=== PATIENT | female | born 1950 | race Hispanic/Latino ===

== ENCOUNTER 2017-06-17 08:11 | Outpatient (CLI) | payer MEDICARE ==
--- NOTE | 2017-06-17 10:27 | Fluoroscopy Report ---
BARIUM SWALLOW AND UGI INDICATION: Hiatal hernia with reflux. Ascending aortic surgical repair. Marfan syndrome. COMPARISON: 10/01/2010 upper GI. FINDINGS: Barium swallow and UGI performed. Patient swallowed thick and thin barium without any difficulty as also tolerated effervescent granules well. [employer] view demonstrates nonobstructive bowel gas pattern. Demineralized bones with few lower lumbar degenerative changes. Numerous pelvic surgical clips. No aspiration or penetration with normal swallowing mechanism. No abnormal pooling within the vallecula or piriform sinuses noted. Slight cervical esophageal web anteriorly about C6 level may be noted on the TAVERAS views. Remainder esophagus is normal in course. Tertiary contractions with poor peristalsis noted and standing contrast column along the distal esophagus. Slight narrowing of the distal esophagus may also be present. A small hiatal hernia noted with contrast refluxing into it. Normal gastric contours without evidence of peptic ulcer disease. Normal duodenal bulb. Large, approximately 4 cm diverticulum off the second portion of the duodenum again seen. Post CABG changes with sternotomy wires also seen. Demineralized bones. C5-C6 disc narrowing. CONCLUSION: Hiatal hernia with reflux, presbyesophagus with impaired peristalsis, possible slight distal esophageal narrowing and large duodenum diverticulum again noted, as described. Slight cervical esophageal web anteriorly also not excluded in this patient with recent cardiothoracic surgery. Please correlate. Thank you for the opportunity to participate in this patient's care.
== END 2017-06-17 08:12 | disposition home or self-care (01) ==
LOC: FLUORO 08:11
PROVIDERS: ATTEND Internal Medicine Cardiovascular Disease
DX: K44.9 Diaphragmatic hernia without obstruction or gangrene (principal); K57.10 Diverticulosis of small intestine without perforation or abscess without bleeding; Q87.40 Marfan syndrome, unspecified; I10 Essential (primary) hypertension; I48.91 Unspecified atrial fibrillation; Z90.710 Acquired absence of both cervix and uterus; Z87.891 Personal history of nicotine dependence; Z85.43 Personal history of malignant neoplasm of ovary; Z79.899 Other long term (current) drug therapy
CPT/HCPCS: 74220; 74247